=== PATIENT | female | born 1945 | race Caucasian/White ===

== ENCOUNTER 2019-07-25 08:38 | Day surgery (SDC) | payer MEDICARE, OTHER ==
[~2019-07-25 08:38] MED LIST: ALBU.083IS IH; AZIT250 PO; ESTR1 PO; EZET10 PO; GABA100 PO; LEVSOD100 PO; MEDR2.5 PO; PRED20 PO; TELM80 PO
--- NOTE | 2019-07-25 10:28 | NUR ---
REPORT FROM DR MARTINEZ AND GABE GUTIÉRREZ. PT ORDERED OXYCODONE FOR PAIN. PT TAKES IT AT HOME FOR CHRONIC PAIN. PT HAS TRACHE AND HX OF PANCREATIC CANCER. OF FOR PATIENT NOT TO LIE ON LEFT SIDE IF NOT TOLERATED.
--- NOTE | 2019-07-25 12:23 | NUR ---
\PT LAYED ON RIGHT SIDE FOR 25 MINUTES. PAIN MED DECREASED PAIN TO A TOLERABLE LEVEL. PT STAYED ALERT AND ORIENTED T/O RECOVERY. Dressing to procedure site clean, dry, intact with no visible drainage, swelling, erythema or bruising noted. Patient up to Ambulate independently. Gait steady. Discharge instructions reviewed with patient. Patient verbalizes understanding. Copy given to patient to take home.ALL BELONINGS RETURNED TO PATIENT AND .
== END 2019-07-25 23:25 | disposition home or self-care (01) ==
LOC: CT 08:38
DX: C22.7 Other specified carcinomas of liver (principal); K86.89 Other specified diseases of pancreas; J44.9 Chronic obstructive pulmonary disease, unspecified; I10 Essential (primary) hypertension; E11.9 Type 2 diabetes mellitus without complications; Z88.2 Allergy status to sulfonamides; Z88.1 Allergy status to other antibiotic agents; Z88.0 Allergy status to penicillin; Z88.8 Allergy status to other drugs, medicaments and biological substances; Z79.899 Other long term (current) drug therapy
CPT/HCPCS: 47000; 77012

== ENCOUNTER 2019-09-06 16:22 | Emergency (ER) | payer MEDICARE, OTHER ==
[~2019-09-06] VITALS: Ht 167.6 cm; Wt 54.4 kg
[2019-09-06] MEDS ORDERED: XARELTO15 MG PO (18:16)
== END 2019-09-06 19:23 | disposition home or self-care (01) ==
LOC: VAS 16:22 → ER 16:22 → EDSTATUS 16:30 → VAS 16:30 → ER 19:23
DX: I82.433 Acute embolism and thrombosis of popliteal vein, bilateral (principal); I82.4Z3 Acute embolism and thrombosis of unspecified deep veins of distal lower extremity, bilateral; I10 Essential (primary) hypertension; J44.9 Chronic obstructive pulmonary disease, unspecified; E78.00 Pure hypercholesterolemia, unspecified; Z88.2 Allergy status to sulfonamides; Z88.8 Allergy status to other drugs, medicaments and biological substances; Z79.899 Other long term (current) drug therapy
CPT/HCPCS: 93970; 99283

== ENCOUNTER 2019-10-22 04:01 | Inpatient (IN) | payer MEDICARE, OTHER ==
[~2019-10-22] VITALS: Ht 160 cm; Wt 57.3 kg
[~2019-10-22 04:01] MED LIST changes: +XARELTO15 MG PO
[2019-10-22] MEDS ORDERED: DEXA4 PO (04:12)
[2019-10-22 05:28] LABS: BASOPHILS ABSOLUTE AUTO 0.04 K/mm3 (0.00-0.23); BASOPHILS PERCENT AUTO 0 % (0-2); EOSINOPHILS PERCENT AUTO 0 % (0-6); Hematocrit 29.9 % (33.0-51.0); Hemoglobin 9.5 g/dL (11.5-16.0); IMMATURE GRAN ABSOLUTE AUTO 0.13 K/mm3 (0.00-0.10); IMMATURE GRAN PERCENT AUTO 1 % (0-1); LYMPHOCYTES ABSOLUTE AUTO 0.61 K/mm3 (0.84-5.20); LYMPHOCYTES PERCENT AUTO 4 % (21-46); MONOCYTES ABSOLUTE AUTO 0.06 K/mm3 (0.16-1.47); MONOCYTES PERCENT AUTO 0 % (4-13); Mean Corpuscular HGB Conc 31.8 g/dL (31.5-36.5); NEUTROPHILS ABSOLUTE AUTO 14.06 K/mm3 (1.96-9.15); NEUTROPHILS PERCENT AUTO 94 % (41-73); Platelet Count 219 K/mm3 (150-400); RDW Coefficient Variation 17.7 % (11.7-14.2); Red Blood Cell Count 3.39 M/mm3 (3.80-5.20)
[2019-10-22 05:34] LABS: Mean Corpuscular Volume 88 fL (80-100)
[2019-10-22 05:47] LABS: Alanine Aminotransfer (ALT/SGP 37 U/L (12-78); Albumin/Globulin Ratio 0.6 (0.8-1.8); Alk Phos 225 U/L (50-136); Anion Gap 10 mmol/L (6-16); Aspartate Aminotrans (AST/SGOT 19 U/L (12-37); Bilirubin, Total 1.6 mg/dL (0.1-1.0); Blood Urea Nitrogen 16 mg/dL (8-24); Bun/Creatinine Ratio 25.3 (12.0-20.0); CO2, Blood 20 mmol/L (21-32); Calcium, Blood 7.8 mg/dL (8.5-10.1); Chloride, Blood 107 mmol/L (98-108); Creatinine, Blood 0.63 mg/dL (0.40-1.00); Globulin, Blood 3.5 g/dL (2.2-4.0); Glomerular Filtration Rate >60 (60-); Glucose, Blood 146 mg/dL (70-99); Potassium, Blood 3.9 mmol/L (3.5-5.5); Sodium, Blood 137 mmol/L (136-145); Total Protein, Blood 5.5 g/dL (6.4-8.2)
--- NOTE | 2019-10-22 10:14 | NUR ---
Spoke with Dr. Baires at this time, to ask which hospitalist will be following the pt; it will be Dr. Baires. New orders received for antibiotics, and the doctor will be here to see the patient and speak with her in the room soon.
--- NOTE | 2019-10-22 10:30 | NUR ---
PT ARRIVED TO PCU 2 VIA GURNEY FROM ED. REPORT WAS RECIEVED, PT SPOUCE IN ATTENDENCE. PT IS LETHARGIC, NONVERBAL, HAS A TRACH IN PLACE, VERY THIN, SHE IS ABLE TO ANSWER YES/NO, DENIES PAIN, LUNGS ARE CLEAR T/O, RESP EVEN AND UNLABORED, ON R/A AT THIS TIME, HRR, TELE IN PLACE RUNNING ST PER MONITOR, SEE STRIP, 2+ PITTING EDEMA NOTED TO B/L LE, CAP REFILL <3SEC, B/P IN THE 80'S, WILL BOLUS NS, IV SITE TO LEFT AC SITE IS CLEAR AND PATENT, BTX4, ABD ROUND SOFT NONTENDER, HAS A DRAIN IN HER ABD FOR ACITIES, ATTENDS IN PLACE FOR INCONT, SKIN C/W/D, DESIREE VICTORIA, ORIENTED TO ROOM LAYOUT AND CALL SYSTEM, CALL LIGHT IN REACH. DR. JESSICA IN TO SEE HER, PALLATIVE CARE IN TO SEE HER WELL.
--- NOTE | 2019-10-22 10:44 | NUR ---
Dr. Baires here to see the patient and speak with her and her . Palliative care has been notified also; Dr. Baires said that he spoke with them. PT's is at the bedside and IV NS bolus infusing at this time.
--- NOTE | 2019-10-22 11:30 | NUR ---
Clinical Visit: Pt is drowsy, she is oriented. is at bedside. She denies pain and anxiety at this time. She expresses wish to be placed on comfort measures. She states, "I don't want to live like this," and "I'm waiting on my son, then I want to go." Call placed to hospitalist. Comfort measures orders placed. Pt appears comfortable and denies symptoms at this time. Son will arrive around 2:30 from [facility].
--- NOTE | 2019-10-22 15:08 | NUR ---
Patient is lying in bed and alert. Spouse Loki, and son Willard, are bedside and softly weeping. Patient's son Enrico from [place] calls while I am present. Their conversation is warm and kind.I conduct a brief life review, and provide scripture recitation and prayer. Patient voices appreciation as does family. I will continue to remain available to patient and family.
--- NOTE | 2019-10-22 17:40 | NUR ---
Clinical Visit: Palliative care visit requested by family. Arrived to room. Their question is "how long will this [dying] take?" Educated on individual dying process. Instructed that each person's experience is different. No other concerns or questions at this time.
--- NOTE | 2019-10-22 18:45 | NUR ---
Clinical Visit: PCU nursing working on discharging pt to home on hospice. Spoke with Dr. Baires. Reviewed concerns for medications and risk for pt to return to the hospital if discharged without hospice support. Spoke to [facility]. She reports that it would be better to discharge the pt in the AM, rather late this night. Plan made to discharge to home/hospice tomorrow morning. Pt's family is asking for 4 additional family members to visit the pt tonight. This is approved by PCU charge nurse. Call to screening tent to allow visitors.
--- NOTE | 2019-10-22 19:25 | NUR ---
PT HAS BEEN PAIN FREE THIS SHIFT. SHE HAS BEEN REPOSITIONED NEEDED, SPOUCE AND SON AT BEDSIDE, MORE FAMILY COMING DOWN FROM [place]. SHE CALLED THE PALLATIVE NURSE TO ROOM AND WANTS ALL TX STOPPED, SHE HAS BEEN MADE COMFORT CARE, TALKING ABOUT GOING HOME ON HOSPICE, FAMILY IN AGREEMENT, HOSPICE IS ABLE TO TAKE HER, DR. JESSICA IS GOING TO PUT ORDERS IN FOR THE MORNING. NO FURTHER CHANGES THIS SHIFT. CALL LIGHT IN REACH.
--- NOTE | 2019-10-22 22:48 | NUR ---
CARE ASSUMED REPORT RECEIVED, CARE ASSUMED AT 1900 FROM DOUGIE EUCEDA. FAMILY AT BEDSIDE. PT ASLEEP, BUT AROUSES WITH VERBAL STIMULI AND ABLE TO ARTICULATE NEEDS. SINCE ASSUMING CARE, PT HAS DENIED PAIN, DISCOMFORT AND ANXIETY. RR EVEN, UNLABORED. PT HAS DECLINED REPOSITIONING OR CARES OTHER THAN A SODIUM CHLORIDE BULLET FOR CLEANING OUT HER TRACH, WHICH SHE COMPLETED INDEPENDENTLY. FAMILY HAS BEEN IN ROOM MAJORITY OF EVENING, LEFT WITHIN THE LAST HOUR TO GET SOME SLEEP. PT DECLINES NEED FOR INCREASED SUPPORT.
--- NOTE | 2019-10-23 06:44 | NUR ---
SUMMARY PT HAS SLEPT SOUNDLY THROUGHOUT NIGHT. AROUSES EASILY AND EXPRESSES NEEDS CLEARLY. DENIES PAIN, DISCOMFORT, ANXIETY THROUGHOUT NIGHT. USING CALL LIGHT NEEDS ARISE. FAMILY GONE MAJORITY OF NIGHT BUT PT HAS DECLINED FURTHER SUPPORT. PT REPORTS FEELING EAGER TO GET HOME WITH FAMILY THIS MORNING WHEN SHE IS ABLE TO BE DISCHARGED HOME ON HOSPICE.
--- NOTE | 2019-10-23 07:36 | NUR ---
pt awake wanting to go home son at bedside awaiting dr for orders
[2019-10-23] MEDS ORDERED: ATROPINE SULFATE2 ML SL (08:14)
[2019-10-23] MEDS ORDERED: LOPE2C PO (08:15)
[2019-10-23] MEDS ORDERED: Ativan1 MG PO (08:17)
[2019-10-23] MEDS ORDERED: MORP20L SL (08:18)
[2019-10-23] MEDS ORDERED: Transderm-Scop1 EACH TD (08:19)
--- NOTE | 2019-10-23 09:01 | NUR ---
DISCHARGE INSTURCIONS REVIEWED WITH PT AND SON RX GIVEN AWAITING HOSPICE NURSE DR JESSICA BY TO SEE PT INFO FAXED TO HOSPICE
--- NOTE | 2019-10-23 09:30 | NUR ---
FAXED MED LIST TO [facility] RN CALLED [facility] FOR MED LIST
--- NOTE | 2019-10-23 09:55 | NUR ---
[facility] CALLED FOR TRANSPORT
--- NOTE | 2019-10-23 10:18 | NUR ---
ambulance transport to home pt attends changed pt had some coughing with movement
== END 2019-10-23 10:18 | disposition hospice, home (50) | DRG 871 ==
LOC: ER 04:01 → PCU 06:24
PROVIDERS: Emergency Medicine; ADMIT Internal Medicine
DX: A41.9 Sepsis, unspecified organism (principal); R65.21 Severe sepsis with septic shock; J18.9 Pneumonia, unspecified organism; C25.9 Malignant neoplasm of pancreas, unspecified; E87.1 Hypo-osmolality and hyponatremia; Z51.5 Encounter for palliative care; Z93.0 Tracheostomy status; E87.6 Hypokalemia; D64.9 Anemia, unspecified; D64.81 Anemia due to antineoplastic chemotherapy
CPT/HCPCS: 36415; 71045; 80053; 83605; 83690; 83880; 84145; 84484; 85025; 86140; 93005; 93010; 96361; 96365; 96367; 99285-25; A9270; J2543; J7030; J7040; P9046